=== PATIENT | male | born 1955 | race African-American/Black ===

== ENCOUNTER 2017-02-15 09:49 | Outpatient (CLI) | payer BC ==
--- NOTE | 2017-02-15 14:52 | MRI ---
RIGHT KNEE MRI WITHOUT IV CONTRAST: HISTORY: A 61-year-old male with right knee pain and swelling for years. FINDINGS: Multiplanar, multisequence MRI examination of the right knee is performed. There is some diffuse duggan bcutaneous fat stranding in the prepatellar and superficial infrapatellar regions. There is abnorma l thickening of the patellar tendon, both proximally and distally, more prominent proximally, eviden ce for patellar tendinopathy. There is some incomplete ossification at the level of the anterior ti bial tubercle consistent with some residual from Kerry-Schlatter's disease. There is fairly marked irregular cartilage loss and subchondral cystic changes involving the lateral patellar facet cartil age. 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 The lateral meniscus appears unremarkable. There is some minimal intrasubstance degenerative sig nal within the medial meniscus body and anterior horn with slight free edge blunting but without a d efinitive acute tear. The anterior and posterior cruciate ligaments and medial and lateral collater al ligament complex regions appear within normal limits. There is some minimal increased fluid in t he suprapatellar recess. There is also minimal fluid within the popliteal recess as well as some fl uid density extending somewhat cranially from the popliteal recess around the semimembranosis muscle possibly related to prior capsular rupture versus some perimuscular strain of the semimembranosis m yotendinous region. There is some lateral patellar subluxation. 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 Some increased fluid within the suprapatellar rec ess as well as some fluid density within the popliteal fossa recess and some fluid density around th e semimembranosis muscle, nonspecific, possibly either fluid extension from capsular disruption of t he popliteal fossa recess or possibly some perimuscular strain. Minimal intrasubstance degenerative signal and slight blunting of the free edge of the body and anterior horn of the medial meniscus wi thout evidence for a definite acute tear. POS: [facility]
== END 2017-02-15 09:50 | disposition home or self-care (01) ==
LOC: SCSMRI 09:49
PROVIDERS: ATTEND Orthopaedic Surgery
DX: M25.561 Pain in right knee (principal); S83.011A Lateral subluxation of right patella, initial encounter; M76.51 Patellar tendinitis, right knee

== ENCOUNTER 2018-07-11 09:06 | Outpatient (CLI) | payer OTHER ==
[2018-07-11 09:55] LABS: Estimated GFR-MDRD - POC Greater than 90
[2018-07-11] MEDS ORDERED: ISOVUE-370 76%-LOCM 1 ML ONE (10:28)
--- NOTE | 2018-07-11 13:31 | CT ---
CT PELVIS WITH AND WITHOUT CONTRAST: HISTORY: Prostatectomy for prostate cancer. Rising PSA. COMPARISON: 08/02/2015. FINDINGS: There is an umbilical hernia containing mesenteric fat. There is no mesenteric mass, lymphadenopathy , free air, or free fluid. Visualized alimentary canal has a normal caliber. No evidence of obstruction. Ileocecal junction is normal. Normal-caliber appendix. Wedge-shaped defect involving the lower pole of the left kidney, likely representing post treatment c hange. The patient's history states renal cancer. Partial nephrectomy/cryoablation is favored. The re is a hypodensity in the lower pole of the right kidney measuring 0.9 cm. The lesion is too small to characterize. No retroperitoneal mass, lymphadenopathy, or hematoma. Visualized aorta has a normal caliber. Symmetric attenuation of the paraspinal musculature. The urinary bladder is inadequately distended for evaluation. There is no pelvic mass, lymphadenopat hy, free air, or free fluid. The prostate gland is surgically absent. Delayed images do demonstrate contrast in the dependent portion of the urinary bladder. No lytic or blastic lesions in the visualized osseous structures. There is enlarged right inguinal lymph node measuring 1.9 x 2.1 cm. There does appear to be some cent ral necrosis. IMPRESSION: 1. No lytic or blastic lesion in the osseous structures. 2. Limited evaluation of the urinary bladder which appears to be grossly unremarkable. 3. Findings compatible with previous prostatectomy. No definite abnormal lymph nodes of the pelvis. 4. Enlarged, centrally necrotic right inguinal lymph node. POS: [facility]
== END 2018-07-11 09:07 | disposition home or self-care (01) ==
LOC: BICCT 09:06
PROVIDERS: ATTEND Radiology Radiation Oncology
DX: C61 Malignant neoplasm of prostate (principal); R59.0 Localized enlarged lymph nodes
CPT/HCPCS: 72194; 82565